=== PATIENT | male | born 1945 | race African-American/Black ===

== ENCOUNTER 2019-02-20 14:29 | Inpatient (IN) | payer MEDICARE, MEDICAID ==
[~2019-02-20] VITALS: Ht 180.3 cm; Wt 72.6 kg
[~2019-02-20 14:29] MED LIST: CLOP75TA4 PO
[2019-02-20] MEDS ORDERED: MORPHINE SULFATE 4 MG/ML CPJ (NOT FOR IM USE) IV ONE (15:45)
[2019-02-20] MEDS ORDERED: KETOROLAC 30MG/ML VIAL IV ONE (15:45)
[2019-02-20 15:56] LABS: BASOPHILS % 0.3 % (0.0-2.0); EOSINOPHILS % 0.6 % (0.0-5.0); HEMATOCRIT. 39.8 % (42.0-52.0); HEMOGLOBIN. 13.9 g/dL (14.0-18.0); LYMPHOCYTES % 9.9 % (20.0-50.0); MEAN CORPUSCULAR HEMOGLOBIN 31.4 pg (28.0-32.0); MEAN CORPUSCULAR VOLUME 90.3 fL (80.0-94.0); MEAN PLATELET VOLUME 6.9 fl (7.4-10.4); NEUTROPHILS % 81.2 % (40.0-76.0); PLATELET 184 x1000/uL (130-400); RED BLOOD CELL COUNT 4.41 mill/uL (4.7-6.1); RED CELL DISTRIBUTION WIDTH 13.4 % (11.6-14.6)
[2019-02-20 16:02] LABS: CHLORIDE 106 mEq/L (98-107)
[2019-02-20 16:09] LABS: INR 1.2; PARTIAL THROMBOPLASTIN TIME 28.5 sec (23.4-31.0); PROTHROMBIN TIME 11.8 sec (9.6-11.0)
[2019-02-20 16:37] LABS: CLARITY URINE CLOUDY (CLEAR); COLOR URINE YELLOW (YELLOW); KETONES URINE NEGATIVE (NEGATIVE); LEUKOCYTE ESTERASE URINE 2+ (NEGATIVE); NITRITE URINE NEGATIVE (NEGATIVE); OCCULT BLOOD URINE NEGATIVE (NEGATIVE); PH URINE 5.5 (4.5-8.0); PROTEIN URINE NEGATIVE (NEGATIVE); SPECIFIC GRAVITY URINE 1.012 (1.005-1.030); UROBILINOGEN URINE 0.2 E.U./dL (0.2-1.0)
[2019-02-20 21:42] VITALS: BP 156/76
[2019-02-20 22:15] VITALS: BP 152/76
[2019-02-21] VITALS: BP 143/75
[2019-02-21] MEDS ORDERED: ONDANSETRON HCL 4MG/2ML INJ IV PRN
[2019-02-21 04:00] VITALS: BP 154/95
[2019-02-21 06:56] LABS: BASOPHILS % 0.1 % (0.0-2.0); EOSINOPHILS % 0.9 % (0.0-5.0); HEMATOCRIT. 37.5 % (42.0-52.0); MEAN CORPUSCULAR HEMOGLOBIN 31.1 pg (28.0-32.0); MEAN CORPUSCULAR VOLUME 89.8 fL (80.0-94.0); MONOCYTES % 9.5 % (2.0-8.0); NEUTROPHILS % 78.5 % (40.0-76.0); PLATELET 136 x1000/uL (130-400); RED BLOOD CELL COUNT 4.17 mill/uL (4.7-6.1); RED CELL DISTRIBUTION WIDTH 13.1 % (11.6-14.6)
[2019-02-21 08:00] VITALS: BP 156/78
[2019-02-21] MEDS: ENOXAPARIN 40MG/0.4ML SYR SUBCUT SCH (09:00)
[2019-02-21] MEDS: FAMOTIDINE 20MG/2ML VIAL IV SCH (09:03)
[2019-02-21 12:00] VITALS: BP 126/78
[2019-02-21 17:00] VITALS: BP 137/76
[2019-02-21] MEDS: MORPHINE SULFATE 2 MG/ML CPJ (NOT FOR IM USE) IV PRN (17:14)
[2019-02-21 20:00] VITALS: BP 150/73
[2019-02-21] MEDS: METOPROLOL TARTRATE 25MG TABLET PO SCH (20:38)
[2019-02-22] VITALS: BP 147/69
[2019-02-22 04:00] VITALS: BP 136/71
[2019-02-22 07:21] LABS: BASOPHILS % 0.3 % (0.0-2.0); HEMATOCRIT. 38.9 % (42.0-52.0); HEMOGLOBIN. 13.4 g/dL (14.0-18.0); LYMPHOCYTES % 9.4 % (20.0-50.0); MEAN CORPUSCULAR HEMOGLOBIN 30.8 pg (28.0-32.0); MEAN CORPUSCULAR VOLUME 89.3 fL (80.0-94.0); MEAN PLATELET VOLUME 7.2 fl (7.4-10.4); MONOCYTES % 10.1 % (2.0-8.0); NEUTROPHILS % 79.2 % (40.0-76.0); PLATELET 131 x1000/uL (130-400); RED BLOOD CELL COUNT 4.35 mill/uL (4.7-6.1); RED CELL DISTRIBUTION WIDTH 13.4 % (11.6-14.6)
[2019-02-22 08:00] VITALS: BP 141/72
[2019-02-22] MEDS: ENOXAPARIN 40MG/0.4ML SYR SUBCUT SCH (08:53)
[2019-02-22] MEDS: METOPROLOL TARTRATE 25MG TABLET PO SCH ×2 (09:00→20:53)
[2019-02-22] MEDS: FAMOTIDINE 20MG/2ML VIAL IV SCH (09:01)
[2019-02-22] MEDS: DEXT 5%/0.45% NACL 1000ML 1,000 ML IV SCH ×2 (11:30→21:23)
[2019-02-22 12:00] VITALS: BP 159/83
[2019-02-22 16:00] VITALS: BP 156/73
[2019-02-22 20:00] VITALS: BP 102/58
[2019-02-22] MEDS: MORPHINE SULFATE 2 MG/ML CPJ (NOT FOR IM USE) IV PRN (21:29)
[2019-02-23] VITALS: BP 160/81
[2019-02-23 04:00] VITALS: BP 126/74
[2019-02-23 07:52] LABS: BASOPHILS % 0.3 % (0.0-2.0); EOSINOPHILS % 1.1 % (0.0-5.0); HEMATOCRIT. 38.9 % (42.0-52.0); HEMOGLOBIN. 13.4 g/dL (14.0-18.0); LYMPHOCYTES % 9.6 % (20.0-50.0); MEAN CORPUSCULAR HEMOGLOBIN 30.8 pg (28.0-32.0); MEAN CORPUSCULAR VOLUME 89.3 fL (80.0-94.0); MEAN PLATELET VOLUME 7.6 fl (7.4-10.4); MONOCYTES % 11.8 % (2.0-8.0); NEUTROPHILS % 77.2 % (40.0-76.0); PLATELET 131 x1000/uL (130-400); RED BLOOD CELL COUNT 4.36 mill/uL (4.7-6.1); RED CELL DISTRIBUTION WIDTH 13.1 % (11.6-14.6)
[2019-02-23 08:00] VITALS: BP 151/84
[2019-02-23] MEDS: ENOXAPARIN 40MG/0.4ML SYR SUBCUT SCH (09:00)
[2019-02-23] MEDS: METOPROLOL TARTRATE 25MG TABLET PO SCH ×2 (09:00→20:41)
[2019-02-23 11:38] VITALS: BP 147/77
[2019-02-23] MEDS ORDERED: TRANEXAMIC ACID 1,000 MG/10 ML IV NR (14:30)
[2019-02-23] MEDS ORDERED: BUPIVACAINE HCL/PF 0.5% (5MG/ML) 10ML ONE (14:52)
[2019-02-23] MEDS ORDERED: VANCOMYCIN HCL 500 MG/VIAL ONE (14:52)
[2019-02-23] MEDS ORDERED: MORPHINE SULFATE/PF 1MG/ML 10ML AMP ONE (14:52)
[2019-02-23] MEDS ORDERED: BACITRACIN 50,000 UNITS/VIAL ONE ×2 (14:53→16:10)
[2019-02-23] MEDS ORDERED: KETOROLAC 30MG/ML VIAL ONE (14:58)
[2019-02-23] MEDS ORDERED: EPINEPHRINE 1:1000 1 MG/ML AMP ONE (14:58)
[2019-02-23] MEDS ORDERED: ROPIVACAINE HCL 10MG/ML 20 ML VIAL EPI ONE (14:58)
[2019-02-23] MEDS ORDERED: TRANEXAMIC ACID 1,000 MG in SODIUM CHLORIDE 0.9% 100 ML IV NR (15:00)
[2019-02-23] MEDS ORDERED: ROCURONIUM BROMIDE 10MG/ML VIAL 5ML IV ONE (15:36)
[2019-02-23] MEDS ORDERED: FENTANYL CITRATE/PF 50MCG/ML 2ML VIAL ONE ×5 (15:36→18:00)
[2019-02-23] MEDS ORDERED: GLYCOPYRROLATE 0.2 MG/ML 2ML VIAL ONE (15:36)
[2019-02-23] MEDS ORDERED: NEOSTIGMINE METHYLSULFATE 1MG/ML 10 ML VIAL ONE (15:36)
[2019-02-23] MEDS ORDERED: MIDAZOLAM HCL 2 MG/2 ML VIAL ONE (15:36)
[2019-02-23] MEDS ORDERED: PROPOFOL 200MG/20ML VIAL IV ONE (15:36)
[2019-02-23] MEDS ORDERED: SODIUM CHLORIDE 0.9% 10ML VIAL ONE (15:38)
[2019-02-23] MEDS ORDERED: LIDOCAINE HCL/PF 1% 10 MG/ML 5ML VIAL ONE (15:38)
[2019-02-23] MEDS ORDERED: CEFAZOLIN SODIUM 1000MG/VIAL ONE (15:38)
[2019-02-23] MEDS ORDERED: ONDANSETRON HCL 4MG/2ML INJ ONE (15:38)
[2019-02-23] MEDS ORDERED: METOCLOPRAMIDE HCL 10MG/2ML VIAL ONE (15:38)
[2019-02-23] MEDS ORDERED: SUCCINYLCHOLINE CHLORIDE 200MG/10ML IV ONE (15:38)
[2019-02-23] MEDS ORDERED: EPHEDRINE SULFATE 50MG/ML VIAL ONE (15:38)
[2019-02-23] MEDS ORDERED: PHENYLEPHRINE HCL 10 MG/ML 1ML (IV VIAL) IV ONE (15:38)
[2019-02-23 15:39] VITALS: BP 154/87
[2019-02-23] MEDS ORDERED: ALBUMIN HUMAN 12.5G/250ML (5%) IV ONE (16:09)
[2019-02-23] MEDS ORDERED: SKIN ADHESIVE 0.7 GM EA TOP ONE (17:54)
[2019-02-23] MEDS ORDERED: ONDANSETRON HCL 4MG/2ML INJ IV PRN (18:00)
[2019-02-23] MEDS ORDERED: MORPHINE SULFATE 2 MG/ML CPJ (NOT FOR IM USE) IV PRN (18:00)
[2019-02-23] MEDS ORDERED: HYDROMORPHONE HCL/PF 2MG/ML CPJ IV PRN (18:00)
[2019-02-23] MEDS ORDERED: SODIUM CHLORIDE 0.9% 1,000 ML IV ONE (18:15)
[2019-02-23] MEDS ORDERED: KETOROLAC 15MG/ML VIAL IV PRN (19:15)
[2019-02-23] MEDS ORDERED: CEFAZOLIN 1000MG PREMIX 50 ML IV SCH ×2 (19:15→22:00)
[2019-02-24] VITALS: BP 109/63
[2019-02-24 04:00] VITALS: BP 122/65
[2019-02-24 07:08] LABS: BASOPHILS % 0.2 % (0.0-2.0); EOSINOPHILS % 0.9 % (0.0-5.0); HEMATOCRIT. 27.8 % (42.0-52.0); HEMOGLOBIN. 9.5 g/dL (14.0-18.0); LYMPHOCYTES % 7.1 % (20.0-50.0); MEAN CORPUSCULAR HEMOGLOBIN 31.1 pg (28.0-32.0); MEAN CORPUSCULAR VOLUME 90.8 fL (80.0-94.0); MEAN PLATELET VOLUME 7.8 fl (7.4-10.4); MONOCYTES % 13.2 % (2.0-8.0); NEUTROPHILS % 78.6 % (40.0-76.0); PLATELET 132 x1000/uL (130-400); RED BLOOD CELL COUNT 3.07 mill/uL (4.7-6.1); RED CELL DISTRIBUTION WIDTH 12.9 % (11.6-14.6)
[2019-02-24 07:36] VITALS: BP 133/68
[2019-02-24] MEDS: FAMOTIDINE 20MG/2ML VIAL IV SCH (09:00)
[2019-02-24] MEDS: METOPROLOL TARTRATE 25MG TABLET PO SCH ×2 (09:01→20:09)
[2019-02-24] MEDS: ENOXAPARIN 40MG/0.4ML SYR SUBCUT SCH (09:02)
[2019-02-24] MEDS: DEXT 5%/0.45% NACL 1000ML 1,000 ML IV SCH ×3 (10:51→22:08)
[2019-02-24 11:52] VITALS: BP 120/62
[2019-02-24] MEDS: CEFAZOLIN 1000MG PREMIX 50 ML IV SCH ×2 (15:24→22:08)
[2019-02-24 15:48] VITALS: BP 101/62
[2019-02-24] MEDS: CEFTRIAXONE 1 G PREMIX 50 ML IV SCH (17:59)
[2019-02-24 20:00] VITALS: BP 138/62
[2019-02-24] MEDS: ACETAMINOPHEN 325MG TABLET PO PRN (20:09)
[2019-02-25] VITALS: BP 116/53
[2019-02-25 04:00] VITALS: BP 115/66
[2019-02-25 06:09] LABS: BASOPHILS % 0.2 % (0.0-2.0); EOSINOPHILS % 2.1 % (0.0-5.0); HEMATOCRIT. 22.6 % (42.0-52.0); LYMPHOCYTES % 10.1 % (20.0-50.0); MEAN CORPUSCULAR HEMOGLOBIN 31.5 pg (28.0-32.0); MEAN CORPUSCULAR VOLUME 89.3 fL (80.0-94.0); MEAN PLATELET VOLUME 7.9 fl (7.4-10.4); MONOCYTES % 11.6 % (2.0-8.0); PLATELET 111 x1000/uL (130-400); RED BLOOD CELL COUNT 2.53 mill/uL (4.7-6.1); RED CELL DISTRIBUTION WIDTH 12.9 % (11.6-14.6)
[2019-02-25 08:00] VITALS: BP 127/67
[2019-02-25] MEDS: FAMOTIDINE 20MG/2ML VIAL IV SCH (09:38)
[2019-02-25] MEDS: ENOXAPARIN 40MG/0.4ML SYR SUBCUT SCH (09:40)
[2019-02-25] MEDS: METOPROLOL TARTRATE 25MG TABLET PO SCH ×2 (09:40→21:45)
[2019-02-25] MEDS: ACETAMINOPHEN 325MG TABLET PO PRN (09:51)
[2019-02-25 12:00] VITALS: BP 128/60
[2019-02-25] MEDS: DEXT 5%/0.45% NACL 1000ML 1,000 ML IV SCH (12:58)
[2019-02-25] MEDS: CEFTRIAXONE 1 G PREMIX 50 ML IV SCH (14:37)
[2019-02-25] MEDS: MORPHINE SULFATE 2 MG/ML CPJ (NOT FOR IM USE) IV PRN ×2 (14:58→21:45)
[2019-02-25] MEDS: CEFAZOLIN 1000MG PREMIX 50 ML IV SCH ×2 (15:21→21:42)
[2019-02-25 16:00] VITALS: BP 122/54
[2019-02-25 20:00] VITALS: BP 106/67
[2019-02-26] VITALS (8 sets, daily range): BP systolic 112–134; BP diastolic 58–67
[2019-02-26] MEDS: DEXT 5%/0.45% NACL 1000ML 1,000 ML IV SCH (06:05)
[2019-02-26] MEDS: MORPHINE SULFATE 2 MG/ML CPJ (NOT FOR IM USE) IV PRN ×2 (06:49→21:53)
[2019-02-26 07:22] LABS: BASOPHILS % 0.2 % (0.0-2.0); EOSINOPHILS % 1.8 % (0.0-5.0); HEMATOCRIT. 22.2 % (42.0-52.0); HEMOGLOBIN. 7.6 g/dL (14.0-18.0); LYMPHOCYTES % 10.4 % (20.0-50.0); MEAN CORPUSCULAR HEMOGLOBIN 30.5 pg (28.0-32.0); MEAN CORPUSCULAR VOLUME 89.1 fL (80.0-94.0); MEAN PLATELET VOLUME 7.9 fl (7.4-10.4); MONOCYTES % 12.6 % (2.0-8.0); PLATELET 143 x1000/uL (130-400); RED CELL DISTRIBUTION WIDTH 12.8 % (11.6-14.6)
[2019-02-26 07:36] LABS: CHLORIDE 110 mEq/L (98-107)
[2019-02-26] MEDS: FAMOTIDINE 20MG/2ML VIAL IV SCH (09:03)
[2019-02-26] MEDS: ENOXAPARIN 40MG/0.4ML SYR SUBCUT SCH (09:04)
[2019-02-26] MEDS: METOPROLOL TARTRATE 25MG TABLET PO SCH ×2 (09:04→20:09)
[2019-02-26] MEDS: ACETAMINOPHEN 325MG TABLET PO PRN ×2 (10:35→20:08)
[2019-02-26] MEDS: HYDROCODONE/ACETAMINOPHEN 10/325MG TABLET PO PRN (13:23)
[2019-02-27] VITALS: BP 127/60
[2019-02-27 04:00] VITALS: BP 122/71
[2019-02-27 07:00] LABS: HEMATOCRIT. 22.8 % (42.0-52.0); HEMOGLOBIN. 7.9 g/dL (14.0-18.0); MEAN CORPUSCULAR HEMOGLOBIN 31.1 pg (28.0-32.0); MEAN CORPUSCULAR VOLUME 89.5 fL (80.0-94.0); MEAN PLATELET VOLUME 7.6 fl (7.4-10.4); PLATELET 174 x1000/uL (130-400); RED BLOOD CELL COUNT 2.55 mill/uL (4.7-6.1); RED CELL DISTRIBUTION WIDTH 13.2 % (11.6-14.6)
[2019-02-27 07:22] LABS: CHLORIDE 111 mEq/L (98-107)
[2019-02-27 08:00] VITALS: BP 136/64
[2019-02-27] MEDS: METOPROLOL TARTRATE 25MG TABLET PO SCH (08:34)
[2019-02-27] MEDS: DEXT 5%/0.45% NACL 1000ML 1,000 ML IV SCH (08:36)
[2019-02-27] MEDS ORDERED: FAMOTIDINE 20MG/2ML VIAL IV SCH (09:00)
[2019-02-27 12:00] VITALS: BP 131/68
[2019-02-27 12:13] LABS: TOTAL IRON BINDING CAPACITY 144 ug/dL (250-450)
[2019-02-27 12:34] LABS: PLATELET ESTIMATE NORMAL
[2019-02-27] MEDS ORDERED: DOCUSATE SODIUM 250MG CAPSULE PO SCH (13:15)
[2019-02-27] MEDS: HYDROCODONE/ACETAMINOPHEN 10/325MG TABLET PO PRN (15:40)
[2019-02-27 15:45] VITALS: BP 146/60
[2019-02-27 17:42] VITALS: BP 99/146
[2019-02-27] MEDS ORDERED: LACTULOSE 20G/30ML UDC PO PRN (21:00)
== END 2019-02-27 18:18 | DRG 710 ==
LOC: ER 14:29 → 6EST 17:34 → EDBEDREQ 17:39 → EDBEDREQTM 17:40 → ENRESERV 20:13
PROVIDERS: ADMIT Internal Medicine; ATTEND Internal Medicine
PROC: 0SR90JA Replacement of Right Hip Joint with Synthetic Substitute, Uncemented, Open Approach (ICD-10-PCS; principal; 2019-02-23)
DX: A41.9 Sepsis, unspecified organism (principal); N17.9 Acute kidney failure, unspecified; S72.001A Fracture of unspecified part of neck of right femur, initial encounter for closed fracture; E11.22 Type 2 diabetes mellitus with diabetic chronic kidney disease; N39.0 Urinary tract infection, site not specified; I12.9 Hypertensive chronic kidney disease with stage 1 through stage 4 chronic kidney disease, or unspecified chronic kidney disease; N18.9 Chronic kidney disease, unspecified; G40.909 Epilepsy, unspecified, not intractable, without status epilepticus; F12.90 Cannabis use, unspecified, uncomplicated; M16.0 Bilateral primary osteoarthritis of hip; W03.XXXA Other fall on same level due to collision with another person, initial encounter; Y09 Assault by unspecified means; Y92.89 Other specified places as the place of occurrence of the external cause; Y99.8 Other external cause status; Z88.8 Allergy status to other drugs, medicaments and biological substances; Z79.899 Other long term (current) drug therapy; Z79.02 Long term (current) use of antithrombotics/antiplatelets
CPT/HCPCS: 36415; 71045; 72170; 72192; 73501; 73502; 73560; 76000; 80048; 82728; 83540; 83550; 88305; 88311; 93005; 93306; 93970; 97110; 97162; 97164; 97530; 99285; C1776; J0330; J0690; J0696; J1650; J1885; J2250; J2270; J2274; J2370; J2405; J2704; J2710; J2765; J2795; J3010; J3370; J3490; J7050; P9041

== ENCOUNTER 2020-05-13 12:13 | Emergency (ER) | payer MEDICARE, MEDICAID ==
[~2020-05-13] VITALS: Ht 180.3 cm; Wt 74.0 kg
[2020-05-13] MEDS ORDERED: TRAMADOL 50MG TABLET PO ONE (13:00)
[2020-05-13 14:01] LABS: CLARITY URINE CLEAR (CLEAR); COLOR URINE YELLOW (YELLOW); KETONES URINE NEGATIVE (NEGATIVE); LEUKOCYTE ESTERASE URINE 2+ (NEGATIVE); NITRITE URINE POSITIVE (NEGATIVE); OCCULT BLOOD URINE TRACE (NEGATIVE); PH URINE 6.5 (4.5-8.0); PROTEIN URINE NEGATIVE (NEGATIVE); SPECIFIC GRAVITY URINE 1.012 (1.005-1.030); UROBILINOGEN URINE 0.2 E.U./dL (0.2-1.0)
[2020-05-13] MEDS ORDERED: AMOXICILLIN/POTASSIUM CLAVULANATE 875/125MG TAB PO ONE (15:00)
[2020-05-13 15:07] VITALS: BP 149/71
== END 2020-05-13 15:23 | disposition home or self-care (01) ==
LOC: ER 12:27
DX: N49.2 Inflammatory disorders of scrotum (principal); N39.0 Urinary tract infection, site not specified; N43.3 Hydrocele, unspecified; N50.3 Cyst of epididymis
CPT/HCPCS: 76870; 81003; 87077; 87186; 93005; 93976; 99285

== ENCOUNTER 2021-05-19 13:58 | Inpatient (IN) | payer MEDICARE, MEDICAID ==
[~2021-05-19] VITALS: Ht 180.3 cm; Wt 64.4 kg
[~2021-05-19 13:58] MED LIST changes: +CLOP-31 PO; -CLOP75TA4 PO
[2021-05-19 15:00] LABS: BASOPHILS % 0.1 % (0.0-2.0); EOSINOPHILS % 0.3 % (0.0-5.0); HEMATOCRIT. 37.3 % (42.0-52.0); LYMPHOCYTES % 10.6 % (20.0-50.0); MEAN CORPUSCULAR HEMOGLOBIN 29.9 pg (28.0-32.0); MEAN CORPUSCULAR VOLUME 85.6 fL (80.0-94.0); MONOCYTES % 10.6 % (2.0-8.0); NEUTROPHILS % 78.4 % (40.0-76.0); PLATELET 287 x1000/uL (130-400); RED BLOOD CELL COUNT 4.36 mill/uL (4.7-6.1); RED CELL DISTRIBUTION WIDTH 13.8 % (11.6-14.6)
[2021-05-19 15:03] LABS: CHLORIDE 105 mEq/L (98-107)
[2021-05-19 15:05] LABS: INR 1.3; PROTHROMBIN TIME 13.5 sec (9.6-11.0)
[2021-05-19] MEDS ORDERED: CLINDAMYCIN 600 MG in DEXTROSE 5% WATER 50 ML IV ONE (16:00)
[2021-05-19] MEDS ORDERED: SODIUM CHLORIDE 0.9% 1000ML BAG (SEPSIS BOLUS) IV ONE (16:00)
[2021-05-19] MEDS ORDERED: VANCOMYCIN 1 G PREMIX 200 ML IV ONE (16:00)
[2021-05-19] MEDS ORDERED: PIPERACILLIN/TAZ 3.375G PREMIX 50 ML IV ONE (16:00)
[2021-05-19 20:30] LABS: CLARITY URINE CLEAR (CLEAR); COLOR URINE YELLOW (YELLOW); KETONES URINE TRACE (NEGATIVE); LEUKOCYTE ESTERASE URINE 2+ (NEGATIVE); NITRITE URINE POSITIVE (NEGATIVE); OCCULT BLOOD URINE NEGATIVE (NEGATIVE); PH URINE 5.5 (4.5-8.0); PROTEIN URINE TRACE (NEGATIVE); SPECIFIC GRAVITY URINE 1.014 (1.005-1.030)
[2021-05-20] VITALS (7 sets, daily range): BP systolic 109–151; BP diastolic 65–78
[2021-05-20] MEDS ORDERED: ACETAMINOPHEN 325MG TABLET PO PRN (02:45)
[2021-05-20] MEDS ORDERED: DEXTROSE 50% WATER 50ML SYRINGE IV PRN ×2 (02:45→12:15)
[2021-05-20] MEDS: PIPERACILLIN/TAZOBACTAM 3.375 G in DEXTROSE 5% WATER 50 ML IV SCH ×3 (03:32→18:38)
[2021-05-20] MEDS: BLOOD SUGAR DIAGNOSTIC STRIP TEST SCH ×2 (06:40→12:21)
[2021-05-20] MEDS: MORPHINE SULFATE 2 MG/ML CPJ (NOT FOR IM USE) IV PRN (06:41)
[2021-05-20] MEDS: INSULIN LISPRO 100 UNITS/ML SUBCUT SCH ×2 (06:52→12:21)
[2021-05-20] MEDS: FAMOTIDINE 20MG TABLET PO SCH (08:53)
[2021-05-20] MEDS: ENOXAPARIN 40MG/0.4ML SYR SUBCUT SCH (08:59)
[2021-05-20] MEDS ORDERED: VANCOMYCIN 1,750 MG in DEXT 5% WATER 500 ML IV SCH (10:00)
[2021-05-20 10:01] LABS: BASOPHILS % 0.3 % (0.0-2.0); EOSINOPHILS % 0.4 % (0.0-5.0); HEMATOCRIT. 37.8 % (42.0-52.0); HEMOGLOBIN. 12.8 g/dL (14.0-18.0); MEAN CORPUSCULAR VOLUME 85.9 fL (80.0-94.0); MEAN PLATELET VOLUME 7.3 fl (7.4-10.4); NEUTROPHILS % 77.3 % (40.0-76.0); PLATELET 256 x1000/uL (130-400); RED CELL DISTRIBUTION WIDTH 13.6 % (11.6-14.6)
[2021-05-20 10:09] LABS: CHLORIDE 108 mEq/L (98-107)
[2021-05-20] MEDS: VANCOMYCIN 1250MG in DEXTROSE 5% WATER 250ML IV SCH (11:15)
[2021-05-20] MEDS ORDERED: PNEUMOCOCCAL 23-VAL P-SAC VAC 0.5 ML IM ONE (12:00)
[2021-05-20] MEDS ORDERED: ASPI-986 PO (12:15)
[2021-05-20] MEDS ORDERED: IPRATROPIUM/ALBUTEROL 0.5-3(2.5)MG/3ML NEB HHN PRN (12:15)
[2021-05-20] MEDS ORDERED: ONDANSETRON HCL 4MG/2ML INJ IV PRN (12:15)
[2021-05-20] MEDS ORDERED: MAGNESIUM/ALUMINUM HYDROXIDE/SIMETHICONE 30ML UDC PO PRN (12:15)
[2021-05-20] MEDS ORDERED: HYDROCODONE/ACETAMINOPHEN 5/325MG TABLET PO PRN (12:15)
[2021-05-20] MEDS ORDERED: CLONIDINE 0.1MG TABLET PO PRN (12:15)
[2021-05-20] MEDS ORDERED: DOCUSATE SODIUM 100MG CAPSULE PO PRN (12:15)
[2021-05-20] MEDS ORDERED: BLOOD SUGAR DIAGNOSTIC STRIP TEST SCH (12:20)
[2021-05-20] MEDS ORDERED: LIDOCAINE HCL/EPINEPHRINE 1%-EPI 1:100,000 10 ML VIAL INFIL NR (12:45)
[2021-05-20] MEDS ORDERED: MORPHINE SULFATE 2 MG/ML CPJ (NOT FOR IM USE) IV NR (12:45)
[2021-05-20] MEDS ORDERED: NALOXONE HCL 0.4MG/ML VIAL IV PRN (21:15)
[2021-05-21] VITALS: BP 102/63
[2021-05-21] MEDS: PIPERACILLIN/TAZOBACTAM 3.375 G in DEXTROSE 5% WATER 50 ML IV SCH ×4 (03:00→21:40)
[2021-05-21 04:00] VITALS: BP 109/65
[2021-05-21 06:23] LABS: BASOPHILS % 0.2 % (0.0-2.0); EOSINOPHILS % 0.5 % (0.0-5.0); HEMATOCRIT. 38.8 % (42.0-52.0); LYMPHOCYTES % 11.4 % (20.0-50.0); MEAN CORPUSCULAR HEMOGLOBIN 29.2 pg (28.0-32.0); MEAN CORPUSCULAR VOLUME 87.4 fL (80.0-94.0); MEAN PLATELET VOLUME 7.4 fl (7.4-10.4); MONOCYTES % 13.5 % (2.0-8.0); NEUTROPHILS % 74.4 % (40.0-76.0); PLATELET 232 x1000/uL (130-400); RED BLOOD CELL COUNT 4.44 mill/uL (4.7-6.1); RED CELL DISTRIBUTION WIDTH 13.9 % (11.6-14.6)
[2021-05-21 06:30] LABS: CHLORIDE 108 mEq/L (98-107)
[2021-05-21 06:37] LABS: PHOSPHORUS 2.3 mg/dL (2.5-4.9)
[2021-05-21 06:38] LABS: LDL CHOLESTEROL 86 mg/dL (5-100)
[2021-05-21 06:39] LABS: HDL CHOLESTEROL 20 mg/dL (40-59); T4 FREE 1.36 ng/dL (0.76-1.46)
[2021-05-21 06:43] LABS: CARCINO EMBRYONIC ANTIGEN 0.9 ng/ml; PROSTRATE SPECIFIC AG TOTAL 0.69 ng/mL (0.0-4.0)
[2021-05-21 08:00] VITALS: BP 106/70
[2021-05-21] MEDS: FAMOTIDINE 20MG TABLET PO SCH (08:57)
[2021-05-21] MEDS: ENOXAPARIN 40MG/0.4ML SYR SUBCUT SCH (08:58)
[2021-05-21] MEDS: VANCOMYCIN 1250MG in DEXTROSE 5% WATER 250ML IV SCH (09:40)
[2021-05-21 12:00] VITALS: BP 105/55
[2021-05-21] MEDS ORDERED: SULF1TAB48 MT (13:54)
[2021-05-21 16:00] VITALS: BP 103/69
[2021-05-21] MEDS ORDERED: PIPERACILLIN/TAZOBACTAM 3.375 G in DEXTROSE 5% WATER 50 ML IV SCH (20:00)
[2021-05-21 20:30] VITALS: BP 114/57
[2021-05-22] VITALS (7 sets, daily range): BP systolic 108–137; BP diastolic 59–80
[2021-05-22 04:11] LABS: NEISSERIA GONORRHOEAE NAA Negative (Negative)
[2021-05-22] MEDS: PIPERACILLIN/TAZOBACTAM 3.375 G in DEXTROSE 5% WATER 50 ML IV SCH ×3 (05:20→21:04)
[2021-05-22 06:01] LABS: HEMATOCRIT. 35.5 % (42.0-52.0); HEMOGLOBIN. 11.8 g/dL (14.0-18.0); MEAN CORPUSCULAR HEMOGLOBIN 29.2 pg (28.0-32.0); MEAN CORPUSCULAR VOLUME 87.8 fL (80.0-94.0); MEAN PLATELET VOLUME 7.5 fl (7.4-10.4); PLATELET 232 x1000/uL (130-400); RED BLOOD CELL COUNT 4.04 mill/uL (4.7-6.1); RED CELL DISTRIBUTION WIDTH 13.8 % (11.6-14.6)
[2021-05-22] MEDS ORDERED: POTASSIUM CHLORIDE 20MEQ TABLET SR PO NR (07:00)
[2021-05-22] MEDS: FAMOTIDINE 20MG TABLET PO SCH (08:24)
[2021-05-22] MEDS: ENOXAPARIN 40MG/0.4ML SYR SUBCUT SCH (08:24)
[2021-05-22] MEDS: VANCOMYCIN 1250MG in DEXTROSE 5% WATER 250ML IV SCH (10:59)
[2021-05-22 14:41] LABS: PLATELET ESTIMATE NORMAL
[2021-05-22] MEDS: MORPHINE SULFATE 2 MG/ML CPJ (NOT FOR IM USE) IV PRN (21:18)
[2021-05-23] VITALS (8 sets, daily range): BP systolic 105–132; BP diastolic 52–86
[2021-05-23] MEDS: PIPERACILLIN/TAZOBACTAM 3.375 G in DEXTROSE 5% WATER 50 ML IV SCH ×3 (05:09→21:16)
[2021-05-23] MEDS: FAMOTIDINE 20MG TABLET PO SCH (09:08)
[2021-05-23] MEDS: ENOXAPARIN 40MG/0.4ML SYR SUBCUT SCH (09:16)
[2021-05-23] MEDS: VANCOMYCIN 1 G PREMIX 200 ML IV SCH (11:19)
[2021-05-23] MEDS: MORPHINE SULFATE 2 MG/ML CPJ (NOT FOR IM USE) IV PRN (21:17)
[2021-05-24 00:37] VITALS: BP 100/54
[2021-05-24 04:00] VITALS: BP 107/47
[2021-05-24] MEDS: PIPERACILLIN/TAZOBACTAM 3.375 G in DEXTROSE 5% WATER 50 ML IV SCH ×3 (05:50→21:25)
[2021-05-24 08:00] VITALS: BP 108/54
[2021-05-24] MEDS: FAMOTIDINE 20MG TABLET PO SCH (08:17)
[2021-05-24] MEDS: ENOXAPARIN 40MG/0.4ML SYR SUBCUT SCH (08:18)
[2021-05-24] MEDS: MORPHINE SULFATE 2 MG/ML CPJ (NOT FOR IM USE) IV PRN (08:29)
[2021-05-24] MEDS: VANCOMYCIN 1 G PREMIX 200 ML IV SCH (10:32)
[2021-05-24 12:00] VITALS: BP 127/52
[2021-05-24 16:00] VITALS: BP 104/52
[2021-05-24 23:12] VITALS: BP 109/56
[2021-05-25 04:00] VITALS: BP 129/76
[2021-05-25] MEDS: PIPERACILLIN/TAZOBACTAM 3.375 G in DEXTROSE 5% WATER 50 ML IV SCH (05:32)
[2021-05-25 08:00] VITALS: BP 135/80
[2021-05-25 10:59] VITALS: BP 135/80
== END 2021-05-25 13:43 | disposition home health service (06) | DRG 720 ==
LOC: ER 13:58 → 6WST 18:06 → ENRESERV 23:10
PROVIDERS: ADMIT Internal Medicine; ATTEND Internal Medicine
PROC: 0V950ZZ Drainage of Scrotum, Open Approach (ICD-10-PCS; principal; 2021-05-20)
DX: A41.50 Gram-negative sepsis, unspecified (principal); N17.0 Acute kidney failure with tubular necrosis; E44.0 Moderate protein-calorie malnutrition; E11.22 Type 2 diabetes mellitus with diabetic chronic kidney disease; J84.9 Interstitial pulmonary disease, unspecified; J44.0 Chronic obstructive pulmonary disease with (acute) lower respiratory infection; G40.909 Epilepsy, unspecified, not intractable, without status epilepticus; I12.9 Hypertensive chronic kidney disease with stage 1 through stage 4 chronic kidney disease, or unspecified chronic kidney disease; N18.9 Chronic kidney disease, unspecified; N39.0 Urinary tract infection, site not specified; N49.2 Inflammatory disorders of scrotum; K57.30 Diverticulosis of large intestine without perforation or abscess without bleeding; K80.20 Calculus of gallbladder without cholecystitis without obstruction; Z20.822 Contact with and (suspected) exposure to COVID-19; Z96.641 Presence of right artificial hip joint; N28.89 Other specified disorders of kidney and ureter; N43.3 Hydrocele, unspecified; N32.89 Other specified disorders of bladder; N40.0 Benign prostatic hyperplasia without lower urinary tract symptoms; Z88.6 Allergy status to analgesic agent; Z68.1 Body mass index [BMI] 19.9 or less, adult
CPT/HCPCS: 36415; 71045; 73560; 74176; 76700; 76870; 80048; 80053; 80061; 80076; 80202; 81003; 82105; 82378; 82962; 83036; 83605; 83735; 84100; 84145; 84153; 84439; 84443; 84484; 84550; 85025; 86140; 86301; 87491; 87591; 93970; 93976; 97162; 99291; C1893; C9803; J1650; J2270; J2543; J3370; J3490; J7030; J7040; J7042; J7060; U0003; U0005; G0103

== ENCOUNTER 2021-06-02 10:52 | Inpatient (IN) | payer MEDICARE, MEDICAID ==
[~2021-06-02] VITALS: Ht 171.4 cm; Wt 74.8 kg
[~2021-06-02 10:52] MED LIST changes: +ASPI-986 PO; -CLOP-31 PO; +SULF1TAB48 MT
[2021-06-02 11:27] LABS: BASOPHILS % 0.4 % (0.0-2.0); EOSINOPHILS % 1.9 % (0.0-5.0); HEMATOCRIT. 35.9 % (42.0-52.0); HEMOGLOBIN. 12.3 g/dL (14.0-18.0); LYMPHOCYTES % 22.7 % (20.0-50.0); MEAN CORPUSCULAR HEMOGLOBIN 29.3 pg (28.0-32.0); MEAN CORPUSCULAR VOLUME 85.9 fL (80.0-94.0); MEAN PLATELET VOLUME 6.2 fl (7.4-10.4); MONOCYTES % 9.9 % (2.0-8.0); NEUTROPHILS % 65.1 % (40.0-76.0); PLATELET 265 x1000/uL (130-400); RED BLOOD CELL COUNT 4.18 mill/uL (4.7-6.1); RED CELL DISTRIBUTION WIDTH 13.9 % (11.6-14.6)
[2021-06-02] MEDS ORDERED: ASPIRIN 325MG EC TABLET PO ONE (11:30)
[2021-06-02 11:34] LABS: CHLORIDE 106 mEq/L (98-107)
[2021-06-02] MEDS ORDERED: MORPHINE SULFATE 2 MG/ML CPJ (NOT FOR IM USE) IV PRN (14:45)
[2021-06-02] MEDS ORDERED: DIPHENHYDRAMINE 50MG/ML VIAL IV PRN (14:45)
[2021-06-02] MEDS ORDERED: ACETAMINOPHEN 325MG TABLET PO PRN (14:45)
[2021-06-02] MEDS ORDERED: CLONIDINE 0.1MG TABLET PO PRN (14:45)
[2021-06-02] MEDS ORDERED: ONDANSETRON HCL 4MG/2ML INJ IV PRN (14:45)
[2021-06-02] MEDS ORDERED: IPRATROPIUM/ALBUTEROL 0.5-3(2.5)MG/3ML NEB HHN PRN (14:45)
[2021-06-02] MEDS ORDERED: NALOXONE HCL 0.4MG/ML VIAL IV PRN (14:45)
[2021-06-02 22:25] VITALS: BP 118/68
[2021-06-03] VITALS (7 sets, daily range): BP systolic 99–140; BP diastolic 58–82
[2021-06-03] MEDS ORDERED: NITROGLYCERIN 50MCG/ML 10ML VIAL (CATH LAB) IV ONE (09:09)
[2021-06-03] MEDS ORDERED: NICARDIPINE 100MCG/ML 10ML VIAL (CATH LAB) IV ONE (09:09)
[2021-06-03] MEDS: ASPIRIN 81MG EC TABLET PO SCH (09:46)
[2021-06-03] MEDS ORDERED: CLOPIDOGREL 75MG TABLET PO NR (10:45)
[2021-06-03 11:55] LABS: CHLORIDE 106 mEq/L (98-107)
[2021-06-03 12:04] LABS: LDL CHOLESTEROL 82 mg/dL (5-100)
[2021-06-03 12:05] LABS: CREATINE KINASE 58 IU/L (39-308); HDL CHOLESTEROL 27 mg/dL (40-59)
[2021-06-03 12:08] LABS: CREATINE KINASE MB FRACTION 5.1 ng/mL (0.5-3.6)
[2021-06-03] MEDS ORDERED: MIDAZOLAM HCL 2 MG/2 ML VIAL ONE ×2 (13:05→14:05)
[2021-06-03] MEDS ORDERED: IODIXANOL 320MG/ML 100 ML BOTTLE IV ONE ×2 (13:06→14:26)
[2021-06-03] MEDS ORDERED: FENTANYL CITRATE/PF 50MCG/ML 2ML VIAL ONE ×2 (13:06→14:33)
[2021-06-03] MEDS ORDERED: LIDOCAINE HCL 1% 20ML VIAL (Pyxis) INJ ONE (13:06)
[2021-06-03] MEDS ORDERED: HEPARIN 1000 UNITS/ML 10ML ONE (13:07)
[2021-06-03] MEDS ORDERED: VERAPAMIL HCL 2.5 MG/1 ML 2ML VIAL IV ONE (13:08)
[2021-06-03] MEDS ORDERED: IOHEXOL-300 100 ML BOTTLE ONE (13:53)
[2021-06-03] MEDS ORDERED: DIPHENHYDRAMINE 50MG/ML VIAL ONE (14:07)
[2021-06-03] MEDS ORDERED: ATROPINE SULFATE 1MG/10ML SYR IV PRN (15:15)
[2021-06-03] MEDS ORDERED: SODIUM CHLORIDE 0.45% 750 ML IV ONE (15:15)
[2021-06-03] MEDS ORDERED: CLOPIDOGREL 75MG TABLET ONE (15:28)
[2021-06-03] MEDS: METOPROLOL TARTRATE 25MG TABLET PO SCH (20:41)
[2021-06-03] MEDS ORDERED: ATORVASTATIN CALCIUM 40MG TABLET PO SCH (21:00)
[2021-06-04] VITALS (9 sets, daily range): BP systolic 106–119; BP diastolic 64–70
[2021-06-04 08:43] LABS: BASOPHILS % 0.3 % (0.0-2.0); EOSINOPHILS % 2.4 % (0.0-5.0); HEMATOCRIT. 33.9 % (42.0-52.0); HEMOGLOBIN. 11.8 g/dL (14.0-18.0); LYMPHOCYTES % 22.8 % (20.0-50.0); MEAN CORPUSCULAR HEMOGLOBIN 30.2 pg (28.0-32.0); MEAN CORPUSCULAR VOLUME 86.4 fL (80.0-94.0); MEAN PLATELET VOLUME 6.6 fl (7.4-10.4); MONOCYTES % 10.1 % (2.0-8.0); NEUTROPHILS % 64.4 % (40.0-76.0); PLATELET 255 x1000/uL (130-400); RED BLOOD CELL COUNT 3.92 mill/uL (4.7-6.1); RED CELL DISTRIBUTION WIDTH 14.1 % (11.6-14.6)
[2021-06-04] MEDS: METOPROLOL TARTRATE 25MG TABLET PO SCH (08:45)
[2021-06-04] MEDS ORDERED: CLOPIDOGREL 75MG TABLET PO SCH (09:00)
[2021-06-04] MEDS: ASPIRIN 81MG EC TABLET PO SCH (09:29)
[2021-06-04] MEDS ORDERED: LIP40 PO (12:28)
[2021-06-04] MEDS ORDERED: METO25TA6 PO (12:28)
[2021-06-04] MEDS ORDERED: CLOP75TA15 PO (12:28)
[2021-06-04] MEDS ORDERED: ASPI-1406 PO (12:28)
[2021-06-07 10:08] LABS: ANTI-NUCLEAR ANTIBODIES DIRECT Negative (Negative)
== END 2021-06-04 15:22 | disposition home or self-care (01) | DRG 174 ==
LOC: ER 10:52 → 6WST 12:31 → ENRESERV 21:23 → 3WST 06-03 17:02
PROVIDERS: ADMIT Internal Medicine; ATTEND Internal Medicine
PROC: 027034Z Dilation of Coronary Artery, One Artery with Drug-eluting Intraluminal Device, Percutaneous Approach (ICD-10-PCS; principal; 2021-06-03)
PROC: 4A023N7 Measurement of Cardiac Sampling and Pressure, Left Heart, Percutaneous Approach (ICD-10-PCS; 2021-06-03)
PROC: B211YZZ Fluoroscopy of Multiple Coronary Arteries using Other Contrast (ICD-10-PCS; 2021-06-03)
DX: I21.4 Non-ST elevation (NSTEMI) myocardial infarction (principal); I13.0 Hypertensive heart and chronic kidney disease with heart failure and stage 1 through stage 4 chronic kidney disease, or unspecified chronic kidney disease; N17.9 Acute kidney failure, unspecified; E11.22 Type 2 diabetes mellitus with diabetic chronic kidney disease; E11.51 Type 2 diabetes mellitus with diabetic peripheral angiopathy without gangrene; E78.5 Hyperlipidemia, unspecified; G40.909 Epilepsy, unspecified, not intractable, without status epilepticus; M06.9 Rheumatoid arthritis, unspecified; I25.10 Atherosclerotic heart disease of native coronary artery without angina pectoris; J45.909 Unspecified asthma, uncomplicated; N18.9 Chronic kidney disease, unspecified; Z93.1 Gastrostomy status; Z95.828 Presence of other vascular implants and grafts; Z20.822 Contact with and (suspected) exposure to COVID-19
CPT/HCPCS: 36415; 71045; 76770; 80048; 80053; 80061; 82550; 82553; 83880; 84443; 84484; 85025; 85347; 86038; 86160; 87426; 92928; 93005; 93306; 93458; 93970; 99285; C1769; C1874; C1887; C1893; J1200; J1644; J2250; J3010; J3490; Q9967

== ENCOUNTER 2022-07-08 13:04 | Emergency (ER) | payer MEDICARE, MEDICAID ==
[~2022-07-08] VITALS: Ht 185.4 cm; Wt 91.0 kg
[~2022-07-08 13:04] MED LIST changes: +ASPI-1406 PO; -ASPI-986 PO; +CLOP75TA15 PO; +LIP40 PO; +METO25TA6 PO; -SULF1TAB48 MT
[2022-07-08 13:16] VITALS: BP 134/77
== END 2022-07-08 17:15 | disposition left against medical advice (07) ==
LOC: ER 13:04
DX: Z53.21 Procedure and treatment not carried out due to patient leaving prior to being seen by health care provider (principal)